=== PATIENT | male | born 1995 | race Caucasian/White ===

== ENCOUNTER 2019-06-25 15:03 | Emergency (ER) | payer OTHER ==
[~2019-06-25] VITALS: Ht 177.8 cm; Wt 91.3 kg
[2019-06-25] MEDS ORDERED: METOPROLOL 50 MG (15:11)
[2019-06-25 15:44] LABS: BASO % 0.3 % (0.0-1.0); EOS % 0.5 % (0.0-3.0); HEMATOCRIT 43.4 % (42.0-52.0); HEMOGLOBIN 15.2 g/dl (13.5-17.5); LYMPH # 1.5 10^3/uL (1.5-5.0); LYMPH % 24.1 % (24.0-44.0); MEAN CORPUSCULAR HEMOGLOBIN 31.5 pg (27.0-33.0); MONO # 0.6 10^3/uL (0.0-0.8); MONO % 10.3 % (0.0-5.0); NEUTROPHILS # 3.9 10^3/uL (1.5-8.5); NEUTROPHILS % 64.1 % (36.0-66.0); PLATELET COUNT, AUTOMATED 228 10^3/uL (150-450); RED BLOOD COUNT 4.82 10^6/uL (4.30-6.10); WHITE BLOOD COUNT 6.1 10^3/uL (4.0-10.0)
[2019-06-25 16:18] LABS: ALBUMIN 4.5 GM/DL (3.2-5.2); ALT/SGPT 23 U/L (12-78); BILIRUBIN,DIRECT 0.2 MG/DL (0.0-0.2); BILIRUBIN,TOTAL 0.6 MG/DL (0.2-1.0); CK-MB VALUE MASS 1.4 NG/ML (<3.6); CPK CREATINE PHOSPHOKINASE 236 U/L (39-308); LIPASE 73 U/L (73-393); MB/CK RELATIVE INDEX 0.59 (< OR =4); TOTAL PROTEIN 7.7 GM/DL (6.4-8.2); TROPONIN I < 0.02 NG/ML (< 0.10)
--- NOTE | 2019-06-25 16:45 | ECGEPIP ---
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
[2019-06-25] MEDS ORDERED: METOPROLOL TART 50 MG TAB PO ONE (17:00)
[2019-06-25 17:04] VITALS: BP 143/86
[2019-06-25 17:06] VITALS: BP 184/95
--- NOTE | 2019-06-25 17:23 | REP ---
HISTORY: Chest pain. COMPARISON: There are no priors for comparison. The technique utilized in obtaining the radiograph has magnified the cardiac silhouette and accentuated the interstitial markings. The superior mediastinal structures are midline. The cardiac silhouette is unremarkable in size, shape, and position. The diaphragmatic surfaces of the lungs are regular, and the costophrenic angles are clear. The pulmonary palacios are clear. The imaged osseous structures are intact. IMPRESSION: There is no acute cardiopulmonary disease. Electronically Signed by Abhinav Kumari DO 06/26/2019 08:45 A
== END 2019-06-25 17:31 | disposition home or self-care (01) ==
LOC: M ED 15:03
DX: R07.9 Chest pain, unspecified (principal); I10 Essential (primary) hypertension